=== PATIENT | male | born 1995 | race African-American/Black ===

== ENCOUNTER 2020-01-03 11:07 | Emergency (ER) | payer SELFPAY ==
[~2020-01-03] VITALS: Ht 175.3 cm; Wt 73.0 kg
[2020-01-03] MEDS ORDERED: LIDOCAINE 1%/EPI 1:100,000 10 ML VIAL IJ ONE (11:45)
[2020-01-03] MEDS ORDERED: IBUPROFEN 600MG TABLET PO ONE (11:45)
[2020-01-03] MEDS ORDERED: BACITRACIN ZINC OINT UDPKT TOP ONE (11:45)
[2020-01-03 11:59] VITALS: BP 143/75
== END 2020-01-03 13:03 | disposition home or self-care (01) ==
LOC: ER 11:07
DX: S01.81XA Laceration without foreign body of other part of head, initial encounter (principal); S01.01XA Laceration without foreign body of scalp, initial encounter; W50.0XXA Accidental hit or strike by another person, initial encounter; Y93.89 Activity, other specified; Y92.89 Other specified places as the place of occurrence of the external cause
CPT/HCPCS: 99283; J3490